=== PATIENT | male | born 1940 | race Caucasian/White ===

== ENCOUNTER → 2017-08-26 | Outpatient (CLI) | payer MEDICARE, BC | END | disposition home or self-care (01) | LOC: LABWHC1 08:46 | PROVIDERS: ATTEND Internal Medicine | DX: E11.9 Type 2 diabetes mellitus without complications (principal) | CPT/HCPCS: 36415; 83036 ==

== ENCOUNTER → 2018-07-21 | Outpatient (CLI) | payer MEDICARE, BC ==
[2018-07-21 18:42] LABS: Hemoglobin A1C 8.6 % (4.0-6.0)
== END ==
LOC: LABWHC1 09:15
PROVIDERS: ATTEND Internal Medicine
DX: E11.42 Type 2 diabetes mellitus with diabetic polyneuropathy (principal); I10 Essential (primary) hypertension; J44.1 Chronic obstructive pulmonary disease with (acute) exacerbation; I25.10 Atherosclerotic heart disease of native coronary artery without angina pectoris; Z79.4 Long term (current) use of insulin
CPT/HCPCS: 36415; 83036

== ENCOUNTER → 2020-01-24 | Outpatient (CLI) | payer MEDICARE, BC ==
--- NOTE | 2020-01-25 07:16 | ECHOF ---
Referral Reason:I50.22 , I10 MEASUREMENTS -------- HEIGHT: 182.9 cm WEIGHT: 127.0 kg BP: IVSd: 1.4 cm (0.6 - 1.1) LVIDd: 4.4 cm (3.9 - 5.3) LVPWd: 1.4 cm (0.6 - 1.1) IVSs: 1.8 cm LVIDs: 3.5 cm LVPWs: 1.7 cm MV EXCURSION: 15.135 mm (> 18.000) MV EF SLOPE: 74 mm/s (70 - 150) EPSS: 0.6 cm FINDINGS -------- Sinus rhythm. Morbid Obesity This was a techncally difficult study with suboptimal views, , Lumason utilized for enhancement of images. The left ventricular size is normal. There is moderate concentric left ventricular hypertrophy. O verall left ventricular systolic function is normal with, an EF between 55 - 60 %. The right ventricle is normal in size. The left atrial size is normal. The right atrial size is normal. The aortic valve was not well visualized. Mild mitral regurgitation is present. The tricuspid valve was not well visualized. Unable to estimate RVSP due to inadequate TR jet spect ral doppler profile. The pulmonic valve was not well visualized. The aortic root size is normal. There is no pericardial effusion. CONCLUSIONS -------- 1. This was a techncally difficult study with suboptimal views, , Lumason utilized for enhancement of images. 2. There is moderate concentric left ventricular hypertrophy. 3. Overall left ventricular systolic function is normal with, an EF between 55 - 60 %. 4. The left atrial size is normal. 5. The aortic valve was not well visualized. 6. Mild mitral regurgitation is present. 7. The tricuspid valve was not well visualized. 8. The pulmonic valve was not well visualized. 9. There is no pericardial effusion. LOADING UNIT OPERATOR: Henrietta Hickman RDCS
== END | disposition home or self-care (01) ==
LOC: RADECHMAIN 14:39
PROVIDERS: ATTEND Family Medicine
DX: I34.0 Nonrheumatic mitral (valve) insufficiency (principal); I25.10 Atherosclerotic heart disease of native coronary artery without angina pectoris; I11.0 Hypertensive heart disease with heart failure; I50.22 Chronic systolic (congestive) heart failure
CPT/HCPCS: C8929; Q9950; 93306

== ENCOUNTER → 2021-11-08 | Outpatient (CLI) | payer MEDICARE, BC ==
--- NOTE | 2021-11-08 14:36 | XR ---
EXAMINATION TYPE: XR lumbosacral spine 5 views, XR 3 views right knee DATE OF EXAM: 11/08/2021 Comparison: None Clinical History: 81-year-old male [id number] LBP, RT KNEE PAIN, FALL Findings: Lumbar spine: Advanced hypertrophic facet arthropathy throughout the lumbar spine especially lower lumbar spine. Mi ld multilevel degenerative disc disease with endplate spondylosis. Vertebral body heights are preserv ed and alignment is maintained. No pars interarticularis defect identified. Left lateral bridging end plate spondylosis L-1-L2. Degenerative subarticular sclerosis at the bilateral SI joints noted. Right knee: Small knee joint effusion. Extensor mechanism appears intact. Limitation on the lateral view secondar y to excessive obliquity. No acute fracture, subluxation, dislocation seen. Vascular calcifications. Impression: 1. Lumbar spine: Advanced hypertrophic facet arthropathy. Mild multilevel degenerative disc disease. No vertebral compression collapse or malalignment seen. Degenerative changes bilateral SI joints. 2. Right knee: Small knee joint effusion. No acute osseous abnormality seen.
== END | disposition home or self-care (01) ==
LOC: RADXRYALE 09:11
PROVIDERS: ATTEND Family Medicine
DX: W01.10XA Fall on same level from slipping, tripping and stumbling with subsequent striking against unspecified object, initial encounter (principal); M51.26 Other intervertebral disc displacement, lumbar region; M47.816 Spondylosis without myelopathy or radiculopathy, lumbar region
CPT/HCPCS: 72110

== ENCOUNTER → 2024-06-07 | Outpatient (CLI) | payer MEDICARE, BC ==
--- NOTE | 2024-06-07 09:53 | XR ---
EXAMINATION TYPE: XR chest 2V DATE OF EXAM: 06/07/2024 9:49 AM COMPARISON: Chest radiographs from 04/15/2013 TECHNIQUE: XR chest 2V Frontal and lateral views of the chest. CLINICAL INDICATION:Male, 83 years old with history of [id number] SOB,COPD; FINDINGS: Lungs/Pleura: Bibasilar subsegmental atelectasis. Chronic elevation left hemidiaphragm. No pleural ef fusion or pneumothorax. Pulmonary vascularity: Unremarkable. Heart/mediastinum: Cardiomediastinal silhouette is prominent in size. Atherosclerotic calcifications are seen in the aorta. Musculoskeletal: Multiple level degenerative disc disease changes seen throughout the spine. IMPRESSION: Chronic elevation of the left hemidiaphragm with bibasilar subsegmental atelectasis. [facility], , 06/07/2024 9:51 AM
== END | disposition home or self-care (01) ==
LOC: RADXRYALE 09:26
PROVIDERS: ATTEND Family Medicine
DX: J44.9 Chronic obstructive pulmonary disease, unspecified (principal); I70.0 Atherosclerosis of aorta; J98.6 Disorders of diaphragm; J98.11 Atelectasis
CPT/HCPCS: 71046